=== PATIENT | female | born 1990 | race African-American/Black ===

== ENCOUNTER 2017-11-30 17:05 | Emergency (ER) | payer OTHER ==
[~2017-11-30] VITALS: Ht 157.5 cm; Wt 77.1 kg
[2017-11-30 17:36] LABS: URINE BILIRUBIN NEGATIVE (Negative); URINE BLOOD NEGATIVE (Negative); URINE CLARITY CLEAR; URINE COLOR YELLOW; URINE GLUCOSE-RANDOM* NEGATIVE (Negative); URINE KETONES NEGATIVE (Negative); URINE NITRITE-REFLEX NEGATIVE (Negative); URINE PROTEIN (DIPSTICK) NEGATIVE (Negative); URINE SPECIFIC GRAVITY 1.025 (1.005-1.035); URINE UROBILINOGEN 0.2 E.U./dl (0.2-1.0)
[2017-11-30 17:37] LABS: URINE LEUKOCYTES-REFLEX TRACE (Negative)
[2017-11-30] MEDS ORDERED: FLAGYL500 MG PO (18:27)
[2017-11-30 18:40] VITALS: BP 95/63
[2017-12-03 15:09] LABS: NEISSERIA GONORRHEA-PCR Negative (Negative)
== END 2017-11-30 18:41 | disposition home or self-care (01) ==
LOC: ER 17:05
PROVIDERS: Physician Assistant
DX: A59.01 Trichomonal vulvovaginitis (principal)

== ENCOUNTER 2017-12-15 19:43 | Emergency (ER) | payer OTHER ==
[~2017-12-15] VITALS: Ht 157.5 cm; Wt 77.1 kg
[~2017-12-15 19:43] MED LIST: FLAGYL500 MG PO
[2017-12-15 20:04] LABS: URINE BILIRUBIN NEGATIVE (Negative); URINE BLOOD NEGATIVE (Negative); URINE CLARITY CLEAR; URINE COLOR YELLOW; URINE GLUCOSE-RANDOM* NEGATIVE (Negative); URINE KETONES NEGATIVE (Negative); URINE NITRITE-REFLEX NEGATIVE (Negative); URINE PROTEIN (DIPSTICK) NEGATIVE (Negative); URINE SPECIFIC GRAVITY 1.025 (1.005-1.035); URINE UROBILINOGEN 0.2 E.U./dl (0.2-1.0)
[2017-12-15 20:07] LABS: URINE LEUKOCYTES-REFLEX 2+ (Negative)
[2017-12-15 20:15] LABS: BACTERIA-REFLEX None Seen /HPF (None Seen); CASTS None Seen /LPF (None Seen); SQUAMOUS 0-3 Few /LPF (0-3); URINE RBC 0-2 Rare /HPF (0-2); URINE WBC-REFLEX 0-5 Rare /HPF (0-5)
[2017-12-15 20:16] LABS: CRYSTALS None Seen /LPF (None Seen)
[2017-12-15] MEDS ORDERED: FLAGYL500 MG PO (20:35)
[2017-12-15 20:57] VITALS: BP 113/75
== END 2017-12-15 20:50 | disposition home or self-care (01) ==
LOC: ER 19:43
PROVIDERS: Physician Assistant
DX: A59.01 Trichomonal vulvovaginitis (principal); L29.3 Anogenital pruritus, unspecified